=== PATIENT | male | born 1955 | race Caucasian/White ===

== ENCOUNTER 2016-07-15 16:16 | Emergency (ER) | payer OTHER ==
[~2016-07-15] VITALS: Ht 182.9 cm; Wt 149.7 kg
[~2016-07-15 16:16] MED LIST: ALLO100T PO; ALOG1TAB5 PO; APIX5TAB3 PO; CYCL-331 PO; DESO60CR12 TP; ESOM40CA PO; GLYB5TAB3 PO; HYDR-2758 PO; LOSA1TAB16 PO; MAGN400T22 PO; METO25TA9 PO; MULT-246 PO; OMEG500C PO; ONDA4TAB12 PO; PHEN37.598 PO; POTA10TA12 PO; SUCR1TAB35 PO
[2016-07-15 16:27] VITALS: BP 162/80
--- NOTE | 2016-07-15 16:34 | EKG ---
[address] [address] Test Date: 2016-07-15 Test Time: 16:32:21 Pat Name: RAFIQ NICOLE Department: Room: Gender: M Appellate [address] Clerk: : 1955 Requested By: PATRICIA CORREA Order Number: [id number] Reading MD: Rick Kim Measurements Intervals [place] Rate: 69 P: 21 GA: 210 QRS: 32 QRSD: 92 T: 36 QT: 362 QTc: 389 Interpretive Statements SINUS RHYTHM Electronically Signed On 07-21-2016 13:32:22 CDT by Rick Kim
--- NOTE | 2016-07-15 17:16 | ED.ADGEN ---
Past History Past Medical History: CAD, Diabetes, Hypertension Past Surgical History: No Surgical History Smoking: Non-smoker Alcohol Use: None Drug Use: None Adult General Chief Complaint Chief Complaint Abnormal blood pressure reading [facility] Patient is a 60-year-old male with history of CAD, hypertension diabetes who presents with concern for elevated blood pressure. Patient states he felt stressed at work this morning and then developed a headache upon returning home. He checked his blood pressure which was 160/120. Patient became concerned of the abnormal reading and presented to the emergency department. On ED arrival , patient's blood pressure is 160s over 80s. Patient reports only mild headache. Denies chest pain shortness of breath palpitations, nausea vomiting, dizziness and weakness or extremity numbness. No other acute symptoms or complaints. Review of Systems Review of Systems ROS as per [facility]. Allergies Allergies Allergies Coded Allergies Type Severity Reaction Last Updated Verified No Known Drug Allergies 07/15/16 No Physical Exam Physical Exam Constitutional: Well developed, well nourished, no acute distress, non-toxic appearance. HENT: Normocephalic, atraumatic, bilateral external ears normal, oropharynx moist, nose normal. Eyes: PERRLA, EOMI, conjunctiva normal, no discharge. Neck: Normal range of motion, no tenderness, supple, no stridor. Cardiovascular:Heart rate regular rhythm, no murmur. Lungs & Thorax: Bilateral breath sounds clear to auscultation. Extremities: No tenderness. Neurologic: Alert and oriented X 3, normal motor function, normal sensory function, no focal deficits noted. Psychologic: Affect normal, judgement normal, mood normal. Current Patient Data Vital Signs Vital Signs Date Time Temp Pulse Resp B/P (MAP) Pulse Ox O2 Delivery O2 Flow Rate FiO2 07/15/16 16:27 97.7 88 18 97 Room Air Lab Results Laboratory Tests Test 07/15/16 16:26 Glucose (Fingerstick) 90 mg/dL (70-99) EKG EKG [EKG: Normal sinus rhythm, no acute ST-T wave changes.] Radiology/Procedures Radiology/Procedures [] Course & Med Decision Making Course & Med Decision Making Pertinent Labs and Imaging studies reviewed. (See chart for details) [Patient blood pressure in normal ED range upon arrival. Blood sugar 90. Patient reports only mild headache for which she declines treatment and prefers to take Tylenol upon returning home. Patient states he feels stress ingesting stress and about for the abnormal pressure reading at home did not tend to come to the emergency department today. He is to follow-up with PCP. Return precautions reviewed] Final Impression Final Impression [1. Headache 2. History of hypertension] Problems: Dragreshma Disclaimer Dragon Disclaimer This electronic medical record was generated, in whole or in part, using a voice recognition dictation system. PATRICIA CORREA DO July 15, 2016 17:16
== END 2016-07-15 17:35 | disposition home or self-care (01) ==
LOC: ER 16:16
DX: R51 Headache (principal); I10 Essential (primary) hypertension; E11.9 Type 2 diabetes mellitus without complications; I25.10 Atherosclerotic heart disease of native coronary artery without angina pectoris
CPT/HCPCS: 82947; 93005; 99283-25